=== PATIENT | male | born 1990 | race Caucasian/White ===

== ENCOUNTER 2024-07-31 14:09 | Emergency (ER) | payer OTHER ==
[~2024-07-31] VITALS: Ht 177.8 cm; Wt 77.1 kg
[2024-07-31] MEDS ORDERED: LIDOCAINE 1%-EPI 1:100,000 20 ML VIAL ONE (14:43)
[2024-07-31] MEDS ORDERED: TDAP DIPH,PERTUSS,TET VAC/PF 0.5 ML DISP.SYRIN IM ONE (14:43)
[2024-07-31] MEDS: LIDOCAINE 1%-EPI 1:100,000 20 ML VIAL IJ ONE (14:51)
[2024-07-31] MEDS: TDAP DIPH,PERTUSS,TET VAC/PF 0.5 ML DISP.SYRIN IM ONE (14:53)
[2024-07-31] MEDS ORDERED: NEOMY/BACITRA/POLYMYXIN B OINT UD PACKET TP ONE (14:56)
[2024-07-31] MEDS: NEOMY/BACITRA/POLYMYXIN B OINT UD PACKET TP ONE (15:16)
[2024-07-31 15:17] VITALS: BP 121/71; O2SAT 99
== END 2024-07-31 15:18 | disposition home or self-care (01) ==
LOC: ER 14:09
DX: S61.012A Laceration without foreign body of left thumb without damage to nail, initial encounter (principal); W45.8XXA Other foreign body or object entering through skin, initial encounter; Y93.89 Activity, other specified; Y92.89 Other specified places as the place of occurrence of the external cause; Y99.8 Other external cause status
CPT/HCPCS: 12001; 90471; 90715; 99283; J3490; A4606; A4663